=== PATIENT | male | born 1945 | race Caucasian/White ===

== ENCOUNTER → 2016-08-31 | Outpatient (CLI) | payer BC ==
[~2016-08-31] MED LIST: ACET-1175 PO; ATOR10TA88 PO; DUTA0.5C PO; ENOX40IN SQ; OMEP40CA PO; OMEP40CA41 PO; SILO8CAP PO; TRIA0.0216 TOP
== END | disposition home or self-care (01) ==
LOC: C.RDSM 15:58
PROVIDERS: ATTEND Physical Medicine & Rehabilitation Sports Medicine
DX: M25.569 Pain in unspecified knee (principal)

== ENCOUNTER → 2016-09-04 | Outpatient (CLI) | payer BC ==
--- NOTE | 2016-09-04 10:03 | DIAGNOSTIC IMAGING REPORT ---
MRI OF THE LEFT KNEE CLINICAL HISTORY: Left knee pain. COMPARISON STUDY: Radiographs of left knee dated 08/31/2016. TECHNIQUE: MRI of the left knee was performed utilizing proton density, T1, and T2-weighted sequences in the axial, sagittal, coronal planes. IV contrast was not administered for this examination. FINDINGS: Menisci: There is a large oblique tear involving the body and posterior horn of the medial meniscus. No flipped fragment is identified. The lateral meniscus is intact. Ligaments: The anterior and posterior cruciate ligaments are intact. The medial and lateral collateral ligaments are within normal limits. Extensor mechanism: The extensor mechanism is intact. Hoffa's fat pad is normal in appearance. Articular cartilage and bone: There is mild (less than 50%) degenerative thinning of the articular cartilage along the weightbearing surface in the medial compartment. The articular cartilage is intact in the lateral and patellofemoral compartments. There is no MRI evidence of fracture. Mild marrow edema is present within the peripheral aspect of the medial tibial plateau. A degenerative geode is present fibular head with mild surrounding marrow edema. Joint effusion: There is a small joint effusion. Soft tissues: The musculature surrounding the knee joint is normal in bulk and signal intensity. IMPRESSION: 1. There is a large oblique tear involving the body and posterior horn of the medial meniscus. 2. There is mild associated reactive marrow edema in the peripheral aspect of the medial tibial plateau. 3. The lateral meniscus, the cruciate ligaments, and the collateral ligament are well-maintained. Electronically signed by: Joe Carr M.D. 09/04/2016 10:01 AM Dictated Date/Time: 09/04/2016 9:57 AM
== END | disposition home or self-care (01) ==
LOC: C.MRIBC 08:36
PROVIDERS: ATTEND Physical Medicine & Rehabilitation Sports Medicine
DX: M25.562 Pain in left knee (principal); S83.242A Other tear of medial meniscus, current injury, left knee, initial encounter; X58.XXXA Exposure to other specified factors, initial encounter; R60.0 Localized edema

== ENCOUNTER → 2016-11-09 | Outpatient (CLI) | payer BC ==
[~2016-11-09] MED LIST changes: -ACET-1175 PO; -TRIA0.0216 TOP
--- NOTE | 2016-11-09 08:37 | DIAGNOSTIC IMAGING REPORT ---
LEFT FOOT 2 VIEWS CLINICAL HISTORY: Left foot pain. FINDINGS: AP and lateral standing views of the left foot are compared to study dated 06/01/2016. The skeletal structures are well mineralized. No fracture is seen. Advanced degenerative change with bony overgrowth and sclerosis is noted at the first metatarsophalangeal joint. The remaining joint spaces of the foot appear preserved. Mild pes planus is suggested. The overlying soft tissues are within normal limits. IMPRESSION: 1. No acute bony abnormality is seen in the left foot. 2. Advanced degenerative change with bony overgrowth is seen at the first metatarsophalangeal joint. Electronically signed by: Joe Carr M.D. 11/09/2016 8:36 AM Dictated Date/Time: 11/09/2016 8:35 AM
--- NOTE | 2016-11-09 08:37 | DIAGNOSTIC IMAGING REPORT ---
RIGHT FOOT MIN 3 VIEWS CLINICAL HISTORY: B/L FOOT PAIN Right pain COMPARISON: None. DISCUSSION: Findings of fusion of the proximal phalanx and first metatarsal. Mild degenerative change of the interphalangeal joints throughout. No additional acute bony abnormality. There is no evidence for soft tissue swelling. IMPRESSION: Findings consistent with fusion of the first metatarsophalangeal joint. Minimal degenerative change. No acute process. Electronically signed by: Quan Galindo M.D. 11/09/2016 8:35 AM Dictated Date/Time: 11/09/2016 8:34 AM
== END | disposition home or self-care (01) ==
LOC: C.RDSM 08:30
PROVIDERS: ATTEND Physical Medicine & Rehabilitation Sports Medicine
DX: M79.671 Pain in right foot (principal); M79.672 Pain in left foot; Z01.818 Encounter for other preprocedural examination; E78.5 Hyperlipidemia, unspecified

== ENCOUNTER → 2016-11-09 | Outpatient (CLI) | payer BC ==
[2016-11-09 14:27] LABS: BASO % 0.5 %; BASO ABS # 0.03 K/uL (0-0.2); COMPLETE YES; IG% 0.3 %; LYMPH ABS # 1.18 K/uL (1.2-3.4); MEAN CELL VOLUME 84.5 fL (80-100); MEAN CORPUSCULAR HEMOGLOBIN 29.3 pg (25-34); MEAN CORPUSCULAR HGB CONC 34.7 g/dl (32-36); MONO % 9.1 %; NEUT % 68.1 %; PLATELET COUNT 239 K/uL (130-400); RED BLOOD COUNT 5.56 M/uL (4.7-6.1); WHITE BLOOD COUNT 5.91 K/uL (4.8-10.8)
[2016-11-09 14:36] LABS: ALT/SGPT 26 U/L (12-78); AST/SGOT 14 U/L (15-37); BLOOD UREA NITROGEN 16 mg/dl (7-18); BUN/CREATININE RATIO 15.9 (10-20); CALCIUM 9.3 mg/dl (8.5-10.1); CARBON DIOXIDE 25 mmol/L (21-32); CHLORIDE 104 mmol/L (98-107); CHOLESTEROL 210 mg/dl (0-200); CREATININE 0.99 mg/dl (0.60-1.40); GLUCOSE 100 mg/dl (70-99); POTASSIUM 4.3 mmol/L (3.5-5.1); SODIUM 139 mmol/L (136-145)
[2016-11-09 14:39] LABS: CHOLESTEROL/HDL RATIO 5.4; HDL CHOLESTEROL 39 mg/dl; LDL CHOLESTEROL CALCULATED 132 mg/dl; TRIGLYCERIDES 197 mg/dl (0-150); VERY LOW DENSITY LIPOPROT CALC 39 mg/dl
== END ==
LOC: C.LABBC 09:32
PROVIDERS: ATTEND Physical Medicine & Rehabilitation Sports Medicine
DX: Z01.818 Encounter for other preprocedural examination (principal); E78.5 Hyperlipidemia, unspecified

== ENCOUNTER → 2016-12-01 | Day surgery (SDC) | payer BC ==
[2016-11-06 13:38] VITALS: Ht 179.1 cm; Wt 80.9 kg
[~2016-12-01] VITALS: Ht 179.1 cm; Wt 80.9 kg
[~2016-12-01] MED LIST changes: +ATOR10TA82 PO; -ATOR10TA88 PO; +ATROPINE SULFATE 0.1 MG/ML 5ML SYR IV PRN; +BUPIVACAINE 0.25% 2.5MG/ML PF 10 ML VIAL INFIL ONE; +BUPIVACAINE/EPINEPHRINE 0.5% MPF 1:200,000 30 ML VIAL ONE; +CEFAZOLIN 2000 MG/60 ML D5W IV SCH; +DEXAMETHASONE SOD INJ 4 MG/ML VIAL ONE; +EpHEDrine SULFATE INJ 50 MG/ML AMP IV PRN; +EpHEDrine SULFATE INJ 50 MG/ML AMP ONE; +FENTANYL CITRATE INJ 50 MCG/1 ML 2 ML VIAL ONE; +HYDROCODONE/ACETAMOPHEN 5/325MG TAB PO PRN; +HYDROmorphone INJ 1 MG/ML SYR IV PRN; +KETOROLAC TROMETHAMINE 30 MG/ML VIAL IV. PRN; +LACTATED RINGER'S 1000ML 1,000 ML IV SCH; +LEVOFLOXACIN 500 MG TAB PO SCH; +LIDOCAINE HCL 1% MPF 2 ML VIAL ONE; +LIDOCAINE HCL 2% 2 ML VIAL (20MG/ML) ONE; +MIDAZOLAM HCL 1 MG/ML 2ML VIAL ONE; +MoRPHine SULFATE PF 1 MG/ML 10 ML AMP/VIAL ONE; +ONDANSETRON INJ 2 MG/ML 2 ML VIAL IV PRN; +ONDANSETRON INJ 2 MG/ML 2 ML VIAL ONE; +PROPOFOL IV EMULSION 10 MG/ML 20 ML VIAL IV ONE; +SODIUM CHLORIDE 0.9% 1000ML 1,000 ML IV SCH; +SODIUM CHLORIDE 0.9% INJ 10 ML VIAL ONE
--- NOTE | 2016-12-01 06:47 | History & Physical Bridge Note ---
H&P Re-Evaluation Bridge Note: I have examined the patient, reviewed the History & Physical and in the interval since the performance of the History & Physical I have noted the following changes of clinical significance: No changes noted
--- NOTE | 2016-12-01 06:48 | Discharge Instructions ---
Discharge Instructions Date of Service Dec 01, 2016. Visit Reason for Visit: Left Knee Medial Meniscus Tear, Lt Great Toe Djd Discharge Discharge Diagnosis / Problem: same Discharge Goals Goal(s): Decrease discomfort, Improve function Medications Stopped Medications Name(s): na Restart Stopped Medication(s): use all scripts as directed Activity Recommendations Activity Limitations: as noted below Lifting Limitations: until after follow-up appointment Exercise/Sports Limitations: until after follow-up appointment May Resume Sexual Activity: when tolerated Shower/Bathe: keep incision dry Driving or Machine Use: no limitations Weightbearing Status: Left non-weightbearing Anesthesia . Post Anesthesia Instructions: If you have had General Anesthesia or IV Sedation: * Do not drive today. * Resume driving when surgeon permits. * Do not make important decisions or sign legal documents today. * Call surgeon for: 1. Temperature elevations greater than 101 degrees F. 2. Uncontrollable pain. 3. Excessive bleeding. 4. Persistent nausea and vomiting. 5. Medication intolerance (nausea, vomiting or rash). * For nausea and vomiting use only clear liquids such as: tea, soda, bouillon until nausea subsides, then gradually increase diet as tolerated. * If you have any concerns or questions, call your surgeon's office. If physician is unavailable and it is an emergency, call 911 or go to the nearest emergency room. . Diet Recommendations Recommended Home Diet: resume previous diet Procedures Procedures Performed: see op note Pending Studies Studies pending at discharge: no Medical Emergencies . Who to Call and When: Medical Emergencies: If at any time you feel your situation is an emergency, please call 911 immediately. . Non-Emergent Contact Non-Emergency issues call your: Specialist Call Non-Emergent contact if: temperature is above 101.5 . . "Provider Documentation" section prepared by Antonio Xie.
--- NOTE | 2016-12-01 09:33 | [facility] Post Operative Brief Note ---
Immediate Operative Summary Operative Date Dec 01, 2016. Pre-Operative Diagnosis Left Knee Medial Mensical Tear, Left Great Toe DJD Post-Operative Diagnosis Same Procedure(s) Performed Left Knee Arthroscopic Partial Medial Meniscectomy, Chondroplasty of Trochlea, Lateral Tibial Plateau; Left Great Toe Open Metatarsophalangeal Joint Fusion Surgeon Dr. Xie Governor Assembler Hydraulic Surgeon(s) Shanice Jacobo PA-C Estimated Blood Loss Trace Findings mm tear /chondral disease trochlea/ltp left knee/ severe djd MTP joint left great toe Fluids (cc crystalloids) 1100cc Specimens None Drains none Anesthesia LMA/block Complication(s) None Disposition Recovery Room / PACU
--- NOTE | 2016-12-01 09:44 | Anesthesia Progress Nt - [facility] ---
Anesthesia Post Op Note Date & Time Dec 01, 2016 at 09:44 Vital Signs Pain Intensity: 0 Vital Signs Past 12 Hours Date Time Temp Pulse Resp B/P Pulse Ox O2 Delivery O2 Flow Rate FiO2 12/01/16 07:37 82 19 99 12/01/16 07:37 83 12/01/16 07:35 146/80 12/01/16 07:32 80 35 98 12/01/16 07:32 80 12/01/16 07:30 151/72 12/01/16 07:27 79 17 98 12/01/16 07:27 79 12/01/16 07:25 161/68 12/01/16 07:22 73 12/01/16 07:22 79 16 99 12/01/16 07:20 132/79 12/01/16 07:17 83 20 100 12/01/16 07:17 82 12/01/16 07:15 133/71 12/01/16 07:12 94 22 100 12/01/16 07:12 92 12/01/16 07:10 159/88 12/01/16 07:09 182/81 12/01/16 07:07 6 12/01/16 07:07 94 6 12/01/16 06:29 37 99 16 148/84 98 Room Air Notes Mental Status: alert / awake / arousable, participated in evaluation Pt Amnestic to Procedure: Yes Nausea / Vomiting: adequately controlled Pain: adequately controlled Airway Patency, RR, SpO2: stable & adequate BP & HR: stable & adequate Hydration State: stable & adequate Anesthetic Complications: no major complications apparent
[2016-12-01 10:04] VITALS: TEMP 36.6
--- NOTE | 2016-12-01 10:10 | OPERATIVE REPORT ---
PREOPERATIVE DIAGNOSIS: Left knee medial meniscal tear and left great toe DJD. POSTOPERATIVE DIAGNOSIS: Left knee and left great toe same. PROCEDURE: Left knee arthroscopy with partial medial meniscectomy, chondroplasty of the trochlea and lateral tibial plateau. Left great toe open MTP joint fusion. SURGEON: Dr. Xie. MINE SURVEYOR: Marlon Jacobo PA-C. HISTORY OF PRESENT ILLNESS: This 71-year-old white male presented to the office with complaints of left knee pain and left great toe pain. Symptoms have been ongoing for a few months. X-ray and MRI were obtained. He elected to proceed with surgical intervention after being educated about potential risks and outcomes. OPERATION: The patient was administered regional block and then taken to the operating room where he was given general anesthetic. He was prepped and draped in usual sterile fashion. Please see Dr. Xie's operative report for specifics of the procedure. I was present for the entire case from initial patient positioning through final wound closure. Assistance was provided in patient positioning, arthroscopy, hemostasis, hardware placement, and final wound closure. The patient was taken to the recovery room in satisfactory condition.
--- NOTE | 2016-12-01 10:16 | OPERATIVE REPORT ---
DATE OF OPERATION: 12/01/2016 PREOPERATIVE DIAGNOSIS: Left knee medial meniscus tear with early disease. POSTOPERATIVE DIAGNOSIS: 1. Left knee medial meniscus tear. 2. Chondral disease trochlea. 3. Chondral disease lateral tibial plateau. 4. 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 OPERATION PERFORMED: 1. Left knee arthroscopy, partial medial meniscectomy, chondroplasty of trochlea, and lateral tibial plateau. 2. Arthrotomy with extensive debridement MTP joint, left great toe with fusion with contoured MTP plate, small locking and compression screws with local bone grafting. SURGEON: Dr. Xie. AMALGAMATOR: Marlon Jacobo PA-C. No resident or fellow available. PERIOPERATIVE SITUATION: Medically cleared male with intractable left knee and left foot pain had a previous MTP fusion on the opposite side is requesting the same thing on the left side. Also has a left knee medial meniscus tear and some early degenerative disease, has some locking and catching, wants to proceed with surgical treatment. OPERATION AND FINDINGS: OPERATION: The patient appropriately identified, site verified, consent verified, 2 grams of Ancef confirmed as being given. The left knee was examined revealing no ligamentous instability. It was then sterilely injected with 20 mL of 0.5% Marcaine with epinephrine and 5 mg of Duramorph for postoperative pain control. The entire left leg was then prepped and draped in usual routine fashion. He did have a popliteal block for the foot. No tourniquet was applied until the calf tourniquet was applied to the foot. The knee was scoped through an inframedial and inferolateral portal which were injected with 3 mL of 0.5% Marcaine. Inspection of the joint revealed extensive synovitis anteriorly. This was debrided. Trochlear disease was noted. This was debrided. No microfracture was elected based on the age of the patient and the diffuse nature of the trochlear disease. The lateral compartment had some lateral tibial plateau cartilage fragmentation which was debrided to a stable base. The lateral meniscus was normal. The lateral femoral condyle was normal. The ACL and PCL were normal. The medial meniscus had an extensive posterior horn tear with a large flap and roof generation but the root was intact. It was trimmed to a stable balanced contoured rim with hand and power instrumentation. The remaining anterior synovectomy was completed, no additional articular disease was found in the medial compartment, lateral compartment or trochlear compartment. The total trochlear disease was full thickness for approximately 2 cm2. This procedure was then terminated. All instruments and fluid removed. The knee was copiously irrigated and the portals closed with 4-0 nylon, dressed at the end of the case with Xeroform, 4 x 4 gauze, sterile Webril, ABD pads and Kyle bandage. The foot was then addressed next and the sterile calf tourniquet applied. It was reprepped and the foot after the booty was removed and then the tourniquet inflated to 250 mmHg for a total of 55 minutes. The dorsal approach to the MTP joint was made. Care taken to make full thickness flaps protect the sensory nerves and the extensor hallucis longus tendon. Large osteophytes were on the medial eminence and on the dorsal side and medial and lateral side of the MTP joint. These were all debrided with power saw. The joint capsule was then released and the toe was able to be flexed. Marginal osteophytes of the proximal phalanx removed, minor cartilage remnants were removed from both the metatarsal head and the proximal phalanx articular surfaces. There was not much left. There was sclerotic bone which was penetrated with a K-wire, multiple holes to ensure marrow and bone leakage. Once this was all set up the plate was then placed distally and centered well and then secured with a temporary pin balls. Fluoro was then reviewed revealing excellent positioning of the MTP joint and of the plate. It was then fixed with locking screws distally 3.0 x 16, 3.0 x 18, and then it was then fixed with cortical sliding screw 3.0 x 18 mm. Everything was then checked and everything looked excellent, so a lag screw was then placed after the compression screw was loosened. It was a 3.0 x 32 partially threaded with excellent purchase. Excellent compression was obtained and then the sliding screw in the sliding part of the plate, cortical screw was then compressed again, excellent compression was obtained. The remaining holes were then filled with the 3.0 x 10 mm locking screw and 3.0 x 20 and 3.0 x 18 locking screws as well. The overall positioning of the plate was excellent. The overall compression was excellent and the alignment was excellent. Trimmings from the medial eminence was then made into bone mulch and packed around the fusion site. The wound was irrigated prior to this and then the capsule closed, subcutaneous layer closed with 2-0 Vicryl and the skin with 2-0 horizontal mattress Prolene suture. SUMMARY OF IMPLANTS: Contoured MTP plate small locking screws 3.0 x one 10 mm locking screw, one 16 mm locking screw, two 18 mm locking screws. Cortical screws 3.0 x 18 mm x1, 10 mm x1 and a lag screw partially threaded 3.0 x 32 mm. ESTIMATED BLOOD LOSS: Trace. CRYSTALLOID: 1100. DVT prophylaxis per protocol. I attest to the content of the Intraoperative Record and any orders documented therein. Any exceptio ns are noted below.
[2016-12-01 11:20] VITALS: BP 143/73; PULSE 89; O2SAT 98
== END | disposition home or self-care (01) ==
LOC: X.SURG 06:12
PROVIDERS: ATTEND Physical Medicine & Rehabilitation Sports Medicine
DX: S83.242A Other tear of medial meniscus, current injury, left knee, initial encounter (principal); M94.262 Chondromalacia, left knee; M19.072 Primary osteoarthritis, left ankle and foot; X58.XXXA Exposure to other specified factors, initial encounter

== ENCOUNTER 2016-12-24 21:02 | Emergency (ER) | payer BC ==
[~2016-12-24] VITALS: Ht 177.8 cm; Wt 82.0 kg
[~2016-12-24 21:02] MED LIST changes: -ATROPINE SULFATE 0.1 MG/ML 5ML SYR IV PRN; -BUPIVACAINE 0.25% 2.5MG/ML PF 10 ML VIAL INFIL ONE; -BUPIVACAINE/EPINEPHRINE 0.5% MPF 1:200,000 30 ML VIAL ONE; -CEFAZOLIN 2000 MG/60 ML D5W IV SCH; -DEXAMETHASONE SOD INJ 4 MG/ML VIAL ONE; -ENOX40IN SQ; -EpHEDrine SULFATE INJ 50 MG/ML AMP IV PRN; -EpHEDrine SULFATE INJ 50 MG/ML AMP ONE; -FENTANYL CITRATE INJ 50 MCG/1 ML 2 ML VIAL ONE; -HYDROCODONE/ACETAMOPHEN 5/325MG TAB PO PRN; -HYDROmorphone INJ 1 MG/ML SYR IV PRN; -KETOROLAC TROMETHAMINE 30 MG/ML VIAL IV. PRN; -LACTATED RINGER'S 1000ML 1,000 ML IV SCH; -LEVOFLOXACIN 500 MG TAB PO SCH; -LIDOCAINE HCL 1% MPF 2 ML VIAL ONE; -LIDOCAINE HCL 2% 2 ML VIAL (20MG/ML) ONE; -MIDAZOLAM HCL 1 MG/ML 2ML VIAL ONE; -MoRPHine SULFATE PF 1 MG/ML 10 ML AMP/VIAL ONE; -OMEP40CA41 PO; -ONDANSETRON INJ 2 MG/ML 2 ML VIAL IV PRN; -ONDANSETRON INJ 2 MG/ML 2 ML VIAL ONE; -PROPOFOL IV EMULSION 10 MG/ML 20 ML VIAL IV ONE; -SODIUM CHLORIDE 0.9% 1000ML 1,000 ML IV SCH; -SODIUM CHLORIDE 0.9% INJ 10 ML VIAL ONE
[2016-12-24 21:03] VITALS: TEMP 36.6; Ht 177.8 cm; Wt 82.0 kg
[2016-12-24 21:30] VITALS: O2SAT 97
--- NOTE | 2016-12-24 21:40 | EMERGENCY ROOM VISIT NOTE ---
History Report prepared by Scribe: Jose Soler Under the Supervision of: Dr. Bin Pena D.O. First contact with patient: 21:30 Chief Complaint: IRREGULAR HEARTBEAT Stated Complaint: HEART RACING THEN SLOWING Nursing Triage Summary: Patient reports he had foot surgery December 01. Tonight he had dinner and came home and sat down, his heart started racing and he felt a burning in the center of his chest. His fit bit read his HR in the 180's. History of Present Illness The patient is a 71 year old male who presents to the Emergency Room with complaints of waxing & waning tachycardia that started earlier tonight. The patient got home from dinner tonight when his heart started racing. The patient' s heart rate reached up to 180. His baseline heart rate is around 70. The patient was also feeling a burning sensation in his chest. His gave him a full strength aspirin. The patient denies any cardiac history, including history of A-fib or SVT. The patient had one beer for dinner prior to the onset of his symptoms. He had left foot / ankle surgery one month ago. Source of History: patient Onset: tonight Position: other (heart) Quality: other (tachycardia) Timing: waxes/wanes Associated Symptoms: + chest pain (burning) Review of Systems See HPI for pertinent positives and negatives. A total of ten systems were reviewed and were otherwise negative. Past Medical & Surgical Medical Problems: (1) BPH (benign prostatic hypertrophy) (2) HLD (hyperlipidemia) Family History No pertinent family history Social History Smoking Status: Never Smoker Alcohol Use: occasionally Marital Status: Housing Status: lives with family Current/Historical Medications Scheduled Atorvastatin (Lipitor), 10 MG PO HS Dutasteride (Avodart), 0.5 MG PO QAM Silodosin (Rapaflo), 8 MG PO QPM Scheduled PRN Omeprazole (Prilosec), 40 MG PO DAILY PRN for Acid Reflux Allergies Coded Allergies: Ampicillin (Verified Allergy, Unknown, RASH, 12/01/16) Erythromycin (Verified Allergy, Unknown, RASH, 12/01/16) Penicillins (Verified Allergy, Unknown, RASH, 12/01/16) Tetracycline (Verified Allergy, Unknown, RASH, 12/01/16) Physical Exam Vital Signs Date Time Temp Pulse Resp B/P Pulse Ox O2 Delivery O2 Flow Rate FiO2 12/24/16 22:07 99 12/24/16 21:30 97 Room Air 12/24/16 21:03 36.6 107 18 150/95 98 Room Air Physical Exam GENERAL: Awake, alert, well-appearing, in no distress HENT: Normocephalic, atraumatic. Oropharynx unremarkable. EYES: Normal conjunctiva. Sclera non-icteric. NECK: Supple. No nuchal rigidity. FROM. No JVD. RESPIRATORY: Clear to auscultation. CARDIAC: Regular rate, normal rhythm. Extremities warm and well perfused. Pulses equal. ABDOMEN: Soft, non-distended. No tenderness to palpation. No rebound or guarding. No masses. RECTAL: Deferred. MUSCULOSKELETAL: Chest examination reveals no tenderness. The back is symmetrical on inspection without obvious abnormality. There is no CVA tenderness to palpation. No joint edema. LOWER EXTREMITIES: Calves are equal size bilaterally and non-tender. No edema. No discoloration. Left ankle boot in place. NEURO: Normal sensorium. No sensory or motor deficits noted. SKIN: No rash or jaundice noted. Medical Decision & Procedures ER Provider Diagnostic Interpretation: X-ray: Per my interpretation, radiologist review. CHEST ONE VIEW PORTABLE CLINICAL HISTORY: Atypical chest pain and tachycardia COMPARISON STUDY: 04/19/2013 FINDINGS: The cardiac and mediastinal contours are normal. There is no evidence of focal pulmonary consolidation. There is no evidence of failure. No pleural effusions are visualized.[ There is a retrocardiac opacity likely representing a hiatal hernia. There is mild basilar interstitial thickening and atelectatic change. IMPRESSION: No active disease in the chest. Electronically signed by: Clifton Mai M.D. 12/24/2016 10:21 PM Dictated Date/Time: 12/24/2016 10:21 PM Laboratory Results 12/24/16 21:55 Red Blood Count 5.43, Mean Corpuscular Volume 84.5, Mean Corpuscular Hemoglobin 29.7, Mean Corpuscular Hemoglobin Concent 35.1, Mean Platelet Volume 11.2, Neutrophils (%) (Auto) 70.6, Lymphocytes (%) (Auto) 18.9, Monocytes (%) (Auto) 7.1, Eosinophils (%) (Auto) 2.6, Basophils (%) (Auto) 0.5, Neutrophils # (Auto) 4.60, Lymphocytes # (Auto) 1.23, Monocytes # (Auto) 0.46, Eosinophils # (Auto) 0.17, Basophils # (Auto) 0.03 12/24/16 21:55 Test 12/24/16 21:55 12/24/16 22:08 White Blood Count 6.51 K/uL (4.8-10.8) Red Blood Count 5.43 M/uL (4.7-6.1) Hemoglobin 16.1 g/dL (14.0-18.0) Hematocrit 45.9 % (42-52) Mean Corpuscular Volume 84.5 fL (80-100) Mean Corpuscular Hemoglobin 29.7 pg (25-34) Mean Corpuscular Hemoglobin Concent 35.1 g/dl (32-36) Platelet Count 217 K/uL (130-400) Mean Platelet Volume 11.2 fL (7.4-10.4) Neutrophils (%) (Auto) 70.6 % Lymphocytes (%) (Auto) 18.9 % Monocytes (%) (Auto) 7.1 % Eosinophils (%) (Auto) 2.6 % Basophils (%) (Auto) 0.5 % Neutrophils # (Auto) 4.60 K/uL (1.4-6.5) Lymphocytes # (Auto) 1.23 K/uL (1.2-3.4) Monocytes # (Auto) 0.46 K/uL (0.11-0.59) Eosinophils # (Auto) 0.17 K/uL (0-0.5) Basophils # (Auto) 0.03 K/uL (0-0.2) RDW Standard Deviation 42.2 fL (36.4-46.3) RDW Coefficient of Variation 13.8 % (11.5-14.5) Immature Granulocyte % (Auto) 0.3 % Immature Granulocyte # (Auto) 0.02 K/uL (0.00-0.02) Anion Gap 6.0 mmol/L (3-11) Est Creatinine Clear Calc Drug Dose 65.4 ml/min Estimated GFR () 79.0 Estimated GFR (Non- 68.1 BUN/Creatinine Ratio 17.3 (10-20) Calcium Level 9.1 mg/dl (8.5-10.1) Total Bilirubin 0.3 mg/dl (0.2-1) Direct Bilirubin 0.1 mg/dl (0-0.2) Aspartate Amino Transf (AST/SGOT) 13 U/L (15-37) Alanine Aminotransferase (ALT/SGPT) 34 U/L (12-78) Alkaline Phosphatase 130 U/L (45-117) Total Protein 7.0 gm/dl (6.4-8.2) Albumin 3.8 gm/dl (3.4-5.0) Bedside Troponin I 0.000 ng/ml (0-0.045) Laboratory results reviewed by me ECG Indication: palpitations Rate (beats per minute): 90 Rhythm: normal sinus Findings: no acute ischemic change, no ectopy, other (normal axis, normal intervals) ED Course 2132: The patient was evaluated in room A9b. A complete history and physical exam was performed. 0010: Reassessed the patient. He is resting, in no distress. He is asymptomatic , no ectopy noted. Discussed the discharge instructions with him. He verbalized understanding. The patient is ready for discharge. Medical Decision Differential diagnosis includes cardiac dysrhythmia, SVT, rapid a-fib, metabolic derangement, anxiety. Repeat examination the patient's in no distress no ectopy no SVT normal vital signs throughout emergency department evaluation. I discussed the case and workup with the patient patient's with at bedside and recommended this continues he needs to get an outpatient Holter monitor. Impression Primary Impression: Palpitations Scribe Attestation The scribe's documentation has been prepared under my direction and personally reviewed by me in its entirety. I confirm that the note above accurately reflects all work, treatment, procedures, and medical decision making performed by me. Departure Information Dispostion Home / Self-Care Referrals Brady Garcia M.D. (PCP) Patient Instructions ED Palpitations, My [facility]
--- NOTE | 2016-12-24 22:23 | DIAGNOSTIC IMAGING REPORT ---
CHEST ONE VIEW PORTABLE CLINICAL HISTORY: Atypical chest pain and tachycardia COMPARISON STUDY: 04/19/2013 FINDINGS: The cardiac and mediastinal contours are normal. There is no evidence of focal pulmonary consolidation. There is no evidence of failure. No pleural effusions are visualized.[ There is a retrocardiac opacity likely representing a hiatal hernia. There is mild basilar interstitial thickening and atelectatic change. IMPRESSION: No active disease in the chest. Electronically signed by: Clifton Mai M.D. 12/24/2016 10:21 PM Dictated Date/Time: 12/24/2016 10:21 PM
[2016-12-24] MEDS ORDERED: OMEP40CA41 PO (22:31)
[2016-12-24 23:56] LABS: BASO % 0.5 %; BASO ABS # 0.03 K/uL (0-0.2); COMPLETE YES; EOS % 2.6 %; HEMATOCRIT 45.9 % (42-52); IG% 0.3 %; LYMPH % 18.9 %; LYMPH ABS # 1.23 K/uL (1.2-3.4); MEAN CELL VOLUME 84.5 fL (80-100); MEAN CORPUSCULAR HEMOGLOBIN 29.7 pg (25-34); MEAN CORPUSCULAR HGB CONC 35.1 g/dl (32-36); MEAN PLATELET VOLUME 11.2 fL (7.4-10.4); MONO % 7.1 %; NEUT % 70.6 %; PLATELET COUNT 217 K/uL (130-400); RED BLOOD COUNT 5.43 M/uL (4.7-6.1); WHITE BLOOD COUNT 6.51 K/uL (4.8-10.8)
[2016-12-25 00:03] LABS: BUN/CREATININE RATIO 17.3 (10-20); CALCIUM 9.1 mg/dl (8.5-10.1); CREATININE 1.1 mg/dl (0.60-1.40); POTASSIUM 4.2 mmol/L (3.5-5.1)
[2016-12-25 00:37] VITALS: BP 143/79; PULSE 77; O2SAT 98
== END 2016-12-25 00:30 | disposition home or self-care (01) ==
LOC: C.EDB 21:02 → C.EDA 12-25 00:30
DX: R00.2 Palpitations (principal); N40.0 Benign prostatic hyperplasia without lower urinary tract symptoms; E78.5 Hyperlipidemia, unspecified

== ENCOUNTER → 2016-12-28 | Outpatient (CLI) | payer BC ==
[~2016-12-28] MED LIST changes: -OMEP40CA PO; +OMEP40CA41 PO
== END | disposition home or self-care (01) ==
LOC: C.LAB1850 16:34
PROVIDERS: ATTEND Nurse Practitioner Adult Health
DX: R00.0 Tachycardia, unspecified (principal)

== ENCOUNTER → 2017-01-18 | Outpatient (CLI) | payer BC | END | disposition home or self-care (01) | LOC: C.RDSM 15:55 | PROVIDERS: ATTEND Physical Medicine & Rehabilitation Sports Medicine | DX: M77.52 Other enthesopathy of left foot and ankle (principal); M79.672 Pain in left foot ==

== ENCOUNTER → 2017-02-15 | Outpatient (CLI) | payer BC | END | disposition home or self-care (01) | LOC: C.RDSM 07:20 | PROVIDERS: ATTEND Physical Medicine & Rehabilitation Sports Medicine | DX: M77.52 Other enthesopathy of left foot and ankle (principal) ==

== ENCOUNTER → 2017-03-08 | Outpatient (CLI) | payer BC ==
[~2017-03-08] MED LIST changes: -ATOR10TA82 PO; +ATOR10TA88 PO
== END | disposition home or self-care (01) ==
LOC: C.RDSM 07:00
PROVIDERS: ATTEND Physical Medicine & Rehabilitation Sports Medicine
DX: M77.52 Other enthesopathy of left foot and ankle (principal)

== ENCOUNTER → 2017-04-26 | Outpatient (CLI) | payer BC | END | disposition home or self-care (01) | LOC: C.RDSM 08:00 | PROVIDERS: ATTEND Physical Medicine & Rehabilitation Sports Medicine | DX: M19.079 Primary osteoarthritis, unspecified ankle and foot (principal) ==

== ENCOUNTER → 2017-05-14 | Outpatient (CLI) | payer BC ==
[2017-05-14 13:54] LABS: ALT/SGPT 25 U/L (12-78); AST/SGOT 14 U/L (15-37); BLOOD UREA NITROGEN 18 mg/dl (7-18); BUN/CREATININE RATIO 18.2 (10-20); CALCIUM 8.7 mg/dl (8.5-10.1); CARBON DIOXIDE 26 mmol/L (21-32); CHLORIDE 106 mmol/L (98-107); GLUCOSE 93 mg/dl (70-99); POTASSIUM 4.1 mmol/L (3.5-5.1); SODIUM 139 mmol/L (136-145)
[2017-05-14 13:57] LABS: CHOLESTEROL 182 mg/dl (0-200); CHOLESTEROL/HDL RATIO 4.7; HDL CHOLESTEROL 39 mg/dl; LDL CHOLESTEROL CALCULATED 111 mg/dl; TRIGLYCERIDES 160 mg/dl (0-150); VERY LOW DENSITY LIPOPROT CALC 32 mg/dl
--- NOTE | 2017-05-21 11:18 | CODING QUERY MEDICAL NECESSITY ---
SUPPORTING DIAGNOSIS NEEDED A supporting diagnosis is required for the test/procedure performed on this patient in order for us to be reimbursed by the patient's insurance. Please provide a supporting diagnosis for the following test/procedure listed below next to the test name along with your signature. *If there is no additional diagnosis for this patient that would support the following test/procedure please document that below next to the test/procedure. Test(s)/Procedure(s) that require a supporting diagnosis: * PSA DIAGNOSIS: Provider Signature: Date: Thank you Jaycee Lopes [employer] Information Management Once completed, please kindly fax back to [phone] For questions please call [phone]
== END | disposition home or self-care (01) ==
LOC: C.LABBC 09:41
PROVIDERS: ATTEND Internal Medicine
DX: Z00.00 Encounter for general adult medical examination without abnormal findings (principal); E78.5 Hyperlipidemia, unspecified; R33.9 Retention of urine, unspecified; N40.1 Benign prostatic hyperplasia with lower urinary tract symptoms

== ENCOUNTER → 2017-11-10 | Outpatient (CLI) | payer BC ==
[~2017-11-10] MED LIST changes: +ATOR10TA82 PO; -ATOR10TA88 PO
[2017-11-10 11:07] LABS: ALT/SGPT 29 U/L (12-78); AST/SGOT 14 U/L (15-37); BLOOD UREA NITROGEN 18 mg/dl (7-18); CARBON DIOXIDE 25 mmol/L (21-32); CHOLESTEROL 190 mg/dl (0-200); CREATININE 1.15 mg/dl (0.60-1.40); GLUCOSE 109 mg/dl (70-99); POTASSIUM 4.2 mmol/L (3.5-5.1); SODIUM 138 mmol/L (136-145)
[2017-11-10 11:10] LABS: LDL CHOLESTEROL CALCULATED 110 mg/dl
== END | disposition home or self-care (01) ==
LOC: C.LABBC 08:11
PROVIDERS: ATTEND Internal Medicine
DX: N40.0 Benign prostatic hyperplasia without lower urinary tract symptoms (principal); E78.5 Hyperlipidemia, unspecified; R00.0 Tachycardia, unspecified

== ENCOUNTER → 2017-11-24 | Outpatient (CLI) | payer BC | END | disposition home or self-care (01) | LOC: C.LABBC 13:24 | PROVIDERS: ATTEND Internal Medicine | DX: R82.90 Unspecified abnormal findings in urine (principal); R35.0 Frequency of micturition ==

== ENCOUNTER → 2017-12-22 | Outpatient (CLI) | payer BC ==
--- NOTE | 2017-12-22 16:51 | DIAGNOSTIC IMAGING REPORT ---
L-SPINE MIN 4 VIEWS ROUTINE CLINICAL HISTORY: Lower back pain. COMPARISON: None FINDINGS: Alignment of the lumbar spine is anatomic. Vertebral body heights are maintained. No fracture or suspicious lesion is present. There is mild multilevel disc space narrowing. Severe multilevel facet arthrosis is present. IMPRESSION: 1. No lumbar spine fracture or subluxation. 2. Mild multilevel disc space narrowing and osteophytosis and severe multilevel facet arthrosis. Electronically signed by: Marcial East M.D. 12/22/2017 4:49 PM Dictated Date/Time: 12/22/2017 4:48 PM
== END | disposition home or self-care (01) ==
LOC: C.RAD1850 16:30
PROVIDERS: ATTEND Internal Medicine
DX: M54.5 Low back pain (principal); Z87.440 Personal history of urinary (tract) infections